=== PATIENT | male | born 1950 | race Caucasian/White ===

== ENCOUNTER 2017-01-20 15:27 | Emergency (ER) | payer BC ==
[~2017-01-20] VITALS: Ht 188 cm; Wt 99.8 kg
[2017-01-20 15:39] VITALS: BP 117/79
[2017-01-20] MEDS ORDERED: NEOMY/BACITR/POLYMYXIN OINT PACKET. TP ONE (16:00)
[2017-01-20] MEDS ORDERED: DIPHTH,PERTUSS(ACELL),TET TOX 0.5 ML DISP.SYRIN. VAX IM ONE (16:00)
[2017-01-20] MEDS ORDERED: HYDR-971 PO (16:02)
[2017-01-20] MEDS ORDERED: CEPH500C PO (16:02)
--- NOTE | 2017-01-20 16:03 | PHYS DOC ---
Past Medical History Past Medical History: Depression Additional Past Medical Histor: ablation to nerve to back, chronic back pain Past Surgical History: Hip Replacement Additional Past Surgical Histo: abd exploratory Alcohol Use: None Drug Use: None Adult General Chief Complaint Chief Complaint: LACERATION/AVULSION [facility] HPI Patient is a 66 year old male presents emergency Department today with complaint of a laceration to his right index finger from table saw. Patient states this occurred within the past 2 hours. Cannot remember his last tetanus shot. He denies numbness or tingling to the area. He states his denies injury. He has no other concerns at this time. Review of Systems Review of Systems Constitutional: Denies fever or chills [] Eyes: Denies change in visual acuity, redness, or eye pain [] HENT: Denies nasal congestion or sore throat [] Respiratory: Denies cough or shortness of breath [] Cardiovascular: No additional information not addressed in HPI [] GI: Denies abdominal pain, nausea, vomiting, bloody stools or diarrhea [] : Denies dysuria or hematuria [] Musculoskeletal: Denies back pain or joint pain [] Integument: Denies rash or skin lesions [] Neurologic: Denies headache, focal weakness or sensory changes [] Endocrine: Denies polyuria or polydipsia [] Allergies Allergies Allergies Coded Allergies Type Severity Reaction Last Updated Verified codeine Allergy Intermediate vomiting 01/20/17 Yes Sulfa (Sulfonamide Antibiotics) Allergy Mild hives 01/20/17 Yes Physical Exam Physical Exam Constitutional: Well developed, well nourished, no acute distress, non-toxic appearance. HENT: Normocephalic, atraumatic, bilateral external ears normal, oropharynx moist, no oral exudates, nose normal. [] Eyes: PERRLA, EOMI, conjunctiva normal, no discharge. [] Neck: Normal range of motion, no tenderness, supple, no stridor. [] Cardiovascular:Heart rate regular rhythm, no murmur [] Lungs & Thorax: Bilateral breath sounds clear to auscultation [] Abdomen: Bowel sounds normal, soft, no tenderness, no masses, no pulsatile masses. [] Skin: Warm, dry, no erythema, no rash. [] Back: No tenderness, no CVA tenderness. [] Extremities: Right index finger with a 3 cm complete avulsion extending into the dermis. This is of the distal phalanx with a slight involvement of the middle phalanx. There is no active bleeding. This avulsion does not cross the midline. Flexor and extensor mechanism at the DIPJ's intact fingers neurovascularly intact with capillary refill less than 2 seconds. Neurologic: Alert and oriented X 3, normal motor function, normal sensory function, no focal deficits noted. [] Psychologic: Affect normal, judgement normal, mood normal. [] Current Patient Data Vital Signs Vital Signs Date Time Temp Pulse Resp B/P Pulse Ox O2 Delivery O2 Flow Rate FiO2 01/20/17 15:39 97.9 75 20 99 Room Air 97.9 EKG EKG [] Radiology/Procedures Radiology/Procedures Wound was cleansed and dressed with triple antibiotic ointment and nonstick dressing. He received a tetanus shot here in the emergency department. Patient states he is able to electronically signed in with his primary care doctor at [facility]. He states he will be in touch with him for wound checks and further evaluation as needed. Course & Med Decision Making Course & Med Decision Making Pertinent Labs and Imaging studies reviewed. (See chart for details) [] Dragon Disclaimer Dragon Disclaimer This electronic medical record was generated, in whole or in part, using a voice recognition dictation system. Departure Departure Impression: Primary Impression: Laceration Disposition: 01 HOME, SELF-CARE Condition: GOOD Patient Instructions: Deep Skin Avulsion, Diphtheria Toxoid; Tetanus Toxoid Adsorbed, DT, Td Additional Instructions: 1. Review the discharge instructions provided for self-care and reasons to return to the emergency department. 2. Apply thin code of triple antibiotic ointment 3 times a day. Use a nonstick dressing to keep the area covered during periods of activity. You can keep the wound open to air at night when activities are done. 3. Take the medication as prescribed. 4. Maintain contact with your primary care doctor for wound management and reevaluation. Scripts Hydrocodone/Apap 5-325 ([place] 5-325 Tablet)1 Each Tablet1 Tab PO PRN Q6HRS PRN PAIN #10 TAB Ref 0 Prov:RONNY ANTUNEZ 01/20/17 Cephalexin 500 Mg Capsule1 Cap PO TID #21 CAP Prov:RONNY ANTUNEZ 01/20/17 RONNY ANTUNEZ Jan 20, 2017 16:03
== END 2017-01-20 16:10 | disposition home or self-care (01) ==
LOC: ER 15:27
DX: S61.210A Laceration without foreign body of right index finger without damage to nail, initial encounter (principal); G89.29 Other chronic pain; Z88.5 Allergy status to narcotic agent; Z88.2 Allergy status to sulfonamides; W45.8XXA Other foreign body or object entering through skin, initial encounter; Y93.89 Activity, other specified; Y92.89 Other specified places as the place of occurrence of the external cause; Y99.8 Other external cause status
CPT/HCPCS: 90471; 90715; 99283-25